=== PATIENT | female | born 1985 | race Hispanic/Latino ===

== ENCOUNTER 2018-07-27 14:23 | Outpatient (CLI) | payer OTHER ==
--- NOTE | 2018-07-27 15:40 | ULT ---
COMPLETE ULTRASOUND GREATER THAN 14 WEEKS: 07/27/18 HISTORY: Size and dates. Single viable intrauterine fetus is noted in cephalic presentation. The placenta is posterior. Amniot ic fluid is within normal limits. heart rate 157 beats per minute. Cervical length appears wit hin normal limits. anatomy: Visualized brain, four chamber heart, three vessel cord, stomach, bladder, kidneys, spine, extr emity regions are unremarkable as visualized. biometry: BPD 5.1 cm - - 21 weeks, 2 days Head circumference 18.7 cm - - 21 weeks, 0 days Abdominal circumference 17.1 cm - - 22 weeks, 0 days Femur length 3.6 cm - - 21 weeks, 2 days IMPRESSION: Single viable intrauterine fetus, 21 weeks, 1 day. ZAK 12/06/18. Estimated weight 439 grams, at 7 percentile. POS: [facility]
== END 2018-07-27 14:24 | disposition home or self-care (01) ==
LOC: NAV ULT 14:23
PROVIDERS: ATTEND Nurse Practitioner
DX: O09.92 Supervision of high risk pregnancy, unspecified, second trimester (principal); Z3A.21 21 weeks gestation of pregnancy
CPT/HCPCS: 76805